=== PATIENT | female | born 1960 | race American Indian/Alaskan Native ===

== ENCOUNTER 2017-08-13 07:45 | Outpatient (CLI) | payer MEDICARE ==
--- NOTE | 2017-08-13 08:25 | XRay Report ---
RIGHT KNEE RADIOGRAPHS INDICATION: Right knee pain. COMPARISON: None similar at this institution. FINDINGS: Standing AP, lateral, oblique and sunrise view of the right knee, 4 images suggest moderate to severe medial compartment narrowing. Otherwise intact articulation. Diffuse degenerative spurring. Possible osteopenia and suprapatellar effusion. CONCLUSION: Right knee osteoarthritic changes with greatest involvement of the medial compartment, as described. Thank you for the opportunity to participate in this patient's care.
== END 2017-08-13 07:46 | disposition home or self-care (01) ==
LOC: SPVIMAG 07:45
PROVIDERS: ATTEND Orthopaedic Surgery
DX: M17.11 Unilateral primary osteoarthritis, right knee (principal)

== ENCOUNTER 2017-08-27 12:18 | Outpatient (CLI) | payer MEDICARE ==
--- NOTE | 2017-08-27 17:00 | XRay Report ---
FINAL REPORT EXAM: XR KNEE 4+V LT HISTORY: LEFT KNEE PAIN TECHNIQUE: Four views left knee Comparison: None FINDINGS: Global osteopenia. Mild medial joint space narrowing and femoral condylar squaring. No suprapatellar bursal effusion. Patellofemoral osteophyte and enthesophyte formation. Mild patellofemoral incongruity. IMPRESSION: Medial compartment osteoarthritis. Mild patellofemoral lateral facet osteoarthritis. No suprapatellar effusion. No fracture or dislocation.
== END 2017-08-27 12:19 | disposition home or self-care (01) ==
LOC: SPVIMAG 12:18
PROVIDERS: ATTEND Orthopaedic Surgery
DX: M17.12 Unilateral primary osteoarthritis, left knee (principal); M85.862 Other specified disorders of bone density and structure, left lower leg